=== PATIENT | male | born 2000 | race Caucasian/White ===

== ENCOUNTER 2022-01-15 18:49 | Emergency (ER) | payer SELFPAY ==
[2022-01-15 19:08] VITALS: BP 106/51; PULSE 99; RESP 20; TEMP 37.9; O2SAT 100
--- NOTE | 2022-01-15 19:28 | PC.NURSE ---
[facility] OK TO PUT IN COVID FLU RSV SWAB PER ERP DR DORADO
[2022-01-15 20:43] LABS: Influenza A QL RT-PCR Positive (Negative); Influenza B QL RT-PCR Negative (Negative); RSV RNA, RT-PCR Negative (Negative); SARS-CoV-2 RNA PCR Negative
== END 2022-01-15 21:23 | disposition left against medical advice (07) ==
LOC: ANHED 21:11
PROVIDERS: Emergency Medicine; Emergency Provider Emergency Medicine
DX: R05.9 Cough, unspecified (principal); Z20.822 Contact with and (suspected) exposure to COVID-19
CPT/HCPCS: 87081; 87502; 87637; 87880; 99199; U0003; U0005

== ENCOUNTER 2022-01-16 09:53 | Emergency (ER) | payer SELFPAY ==
[2022-01-16 10:13] VITALS: BP 116/83; PULSE 83; RESP 18; TEMP 36.8; O2SAT 97
--- NOTE | 2022-01-16 10:22 | ED.URI ---
HPI - URI/Sore Throat General Chief Complaint: Upper Respiratory Infection Stated Complaint: coughing up phlem Time Seen by Provider: 01/16/22 10:15 Source: patient Mode of arrival: ambulatory Limitations: no limitations History of Present Illness HPI Narrative: Mr. Huitron is a 21-year-old male patient presenting to the clinic today with complaints of fever, chills, coughing up phlegm, vomiting, and body aches times 2-3 days. He was seen yesterday in the ER and had COVID, flu, and strep testing performed. All testing is currently negative. He does have direct exposure to his girlfriend who tested yesterday for influenza A. MD elicited complaint: sore throat and nasal congestion Related Data Allergies Allergy/AdvReac Type Severity Reaction Status Date / Time No Known Allergies Allergy Verified 01/16/22 10:12 Review of Systems Review of Systems: Pertinent positives per HPI. Patient denies any rash, headache, visual changes, dizziness, cough, shortness of breath, chest pain, palpitations, diarrhea, constipation, abdominal pain, or any urinary issues. PMFSH Comments At the time of my signature, I reviewed and agree with the nursing past medical, surgical, social, and family history. There is no relevant family history pertinent to the patient complaint. Exam Narrative: General: Well-developed, well nourished, in no apparent distress Head: Normocephalic, atraumatic Eyes: Pupils equally round and reactive to light bilaterally, EOM intact, sclera and conjunctive clear, no discharge, lids normal Ears: TMs intact and clear, ear canals clear, no drainage, grossly hearing normal. Nose: Nares patent, clear nasal discharge, no inflammation, no sinus tenderness. Mouth: Oral pharynx without lesions or masses, good dentition, MMM. Neck: Supple, trachea midline, no enlargement of anterior or posterior cervical nodes, no thyroid masses or goiter palpable. Cardio: Regular rate and rhythm, s1 and s2 normal, no murmur appreciated. Resp: Clear to auscultation bilaterally, no rhonchi, rales, wheezing or rubs Course Course Emergency Course: Portions of this record may have been created with voice recognition software. Level of Care: Express Care Visit Vital Signs Vital signs: Vital Signs Temperature 36.8 C 01/16/22 10:13 Pulse Rate 83 01/16/22 10:13 Respiratory Rate 18 10/29/22 10:13 Blood Pressure 116/83 01/16/22 10:13 Pulse Oximetry 97 01/16/22 10:13 Oxygen Delivery Room Air 01/16/22 10:13 Temperature 36.8 C 01/16/22 10:13 Pulse Rate 83 01/16/22 10:13 Respiratory Rate 18 01/16/22 10:13 Blood Pressure 116/83 01/16/22 10:13 Pulse Oximetry 97 01/16/22 10:13 Oxygen Delivery Room Air 01/16/22 10:13 Vital signs reviewed MDM - URI/Sore Throat MDM Narrative Medical decision making narrative: At the time of visit patient is resting comfortably on the exam table. I will go ahead and empirically treat with Tamiflu as patient has had direct exposure to influenza A. supportive measures were discussed with the patient she voiced understanding of discharge instructions and agrees to the treatment plan. Differential Diagnosis Differential diagnosis: Likely sinusitis, viral infection, influenza and pharyngitis Discharge Plan Discharge Clinical Impression: Viral syndrome, Exposure to influenza Patient Disposition: Home, Self-Care Condition: Stable Instructions: Antibiotic Form, Influenza (ED) Additional Instructions: Take prescription medications only as prescribed-tamiflu Increase fluids and stay well hydrated Tylenol/motrin for pain/fever Flonase and OTC antihistamines as directed Vicks vapor rub to open sinuses Sinus rinses for congestion Cepacol spray, cough drops, throat lozenges, warm tea with honey/lemon, gargle salt water to soothe throat BRAT diet for diarrhea Clear liquids x 24 hours then advance as tolerated for nausea/vomiting Go to the ED if y
== END 2022-01-16 10:26 | disposition home or self-care (01) ==
PROVIDERS: Emergency Provider Nurse Practitioner Family
DX: B34.9 Viral infection, unspecified (principal)
CPT/HCPCS: 99213; G0463

== ENCOUNTER 2023-08-24 14:51 | Emergency (ER) | payer SELFPAY ==
--- NOTE | 2023-08-24 14:57 | ED.NAVMDI ---
HPI - Nausea/Vomiting/Diarrhea General Chief complaint: Nausea/Vomiting/Diarrhea Stated complaint: diarrhea,throwing up Time Seen by Provider: 08/24/23 15:05 Source: patient Mode of arrival: ambulatory Limitations: no limitations History of Present Illness HPI Narrative: Lobo is a 23-year-old male patient presenting to the clinic today with complaints of nausea, vomiting, and diarrhea that started this morning. He reports he vomited 3 times this morning and has had 5-8 diarrhea stools today. Is reporting some discomfort to the right side of his abdomen. No fever or chills. No sick contacts. Does report having a sore throat as well. Related Data Allergies Allergy/AdvReac Type Severity Reaction Status Date / Time No Known Allergies Allergy Verified 08/24/23 14:52 Review of Systems Review of Systems: Pertinent positives per HPI. Patient denies any fever, chills, rash, headache, visual changes, dizziness, cough, runny nose, shortness of breath, chest pain, palpitations, constipation, or any urinary issues. PMFSH Comments At the time of my signature, I reviewed and agree with the nursing past medical, surgical, social, and family history. There is no relevant family history pertinent to the patient complaint. Exam Narrative: General: Well-developed, well nourished, in no apparent distress Head: Normocephalic, atraumatic Eyes: Pupils equally round and reactive to light bilaterally, EOM intact, sclera and conjunctive clear, no discharge, lids normal Ears: TMs intact and clear, ear canals clear, no drainage, grossly hearing normal. Nose: Nares patent, no discharge, no inflammation, no sinus tenderness. Mouth: Oropharynx red without lesions or masses, good dentition, MMM. Neck: Supple, trachea midline, no enlargement of anterior or posterior cervical nodes, no thyroid masses or goiter palpable. Cardio: Regular rate and rhythm, s1 and s2 normal, no murmur appreciated. Resp: Clear to auscultation bilaterally anteriorly and posteriorly, no rhonchi, rales, wheezing or rubs Abdomen: Soft, pliable, bowel sounds present in all quadrants, non-tender to palpation, no organomegly, no CVAT tenderness. Course Course Emergency Course: Portions of this record may have been created with voice recognition software. Level of Care: Express Care Visit Vital Signs Vital signs: Vital Signs Temperature 36.9 C 08/24/23 15:02 Pulse Rate 98 08/24/23 15:02 Respiratory Rate 20 08/24/23 15:02 Blood Pressure 146/86 H 08/24/23 15:02 Pulse Oximetry 98 08/24/23 15:02 Oxygen Delivery Room Air 08/24/23 15:02 Temperature 36.9 C 08/24/23 15:02 Pulse Rate 98 08/24/23 15:02 Respiratory Rate 20 08/24/23 15:02 Blood Pressure 146/86 H 08/24/23 15:02 Pulse Oximetry 98 08/24/23 15:02 Oxygen Delivery Room Air 08/24/23 15:02 Vital signs reviewed MDM - Nausea/Vomiting/Diarrhea MDM Narrative Medical decision making narrative: At the time of visit patient is resting comfortably on the exam table. Patient appears to be nontoxic. Labs: Strep test was performed and was negative in the clinic today. We will send for culture Plan: I suspect patient has gastroenteritis. Prescription for Zofran was sent to the pharmacy. Supportive measures were discussed with the patient and they voiced understanding discharge instructions and agrees to treatment plan. Return precautions reviewed Differential Diagnosis Differential diagnosis: Likely traveler's diarrhea, food poisoning, gastroenteritis, clostridium difficile infection, drug-induced nausea and vomiting, dehydration and other (COVID) Discharge Plan Discharge Clinical Impression: Gastroenteritis Patient Disposition: Home, Self-Care Condition: Stable Instructions: Antibiotic Form, Gastroenteritis (ED) Additional Instructions: Strep test was negative in the clinic today. We will send for culture if this comes back positive we will contact
[2023-08-24 15:02] VITALS: BP 146/86; PULSE 98; RESP 20; TEMP 36.9; O2SAT 98
== END 2023-08-24 15:26 | disposition home or self-care (01) ==
PROVIDERS: Emergency Provider Nurse Practitioner Family
DX: K52.9 Noninfective gastroenteritis and colitis, unspecified (principal)
CPT/HCPCS: 87081; 87880; 99213; G0463

== ENCOUNTER 2023-11-06 20:52 | Emergency (ER) | payer OTHER, SELFPAY ==
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
[2023-11-06 20:54] VITALS: BP 156/82; PULSE 70; RESP 16; TEMP 36.6; O2SAT 98
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
[2023-11-06 23:33] VITALS: BP 148/80; PULSE 74; RESP 16; O2SAT 100
== END 2023-11-06 23:34 | disposition home or self-care (01) ==
PROVIDERS: Emergency Provider Physician Assistant
DX: S16.1XXA Strain of muscle, fascia and tendon at neck level, initial encounter (principal); V49.40XA Driver injured in collision with unspecified motor vehicles in traffic accident, initial encounter
CPT/HCPCS: 70450; 72125; 99284